=== PATIENT | female | born 1980 | race African-American/Black ===

== ENCOUNTER 2019-01-04 03:49 | Emergency (ER) | payer OTHER ==
[~2019-01-04] VITALS: Ht 175.3 cm; Wt 88.0 kg
[~2019-01-04 03:49] MED LIST: ACET1TAB40 PO; CEPH-443 PO; TRIA15CR55 TOP
[2019-01-04 03:54] VITALS: PULSE 83; RESP 17; Ht 175.3 cm; Wt 88.0 kg
[2019-01-04] MEDS ORDERED: IBUPROFEN 600 MG TAB PO ONE (04:30)
[2019-01-04] MEDS ORDERED: DEXAMETHASONE 4 MG TAB PO ONE (04:30)
[2019-01-04] MEDS ORDERED: DIPHENHYDRAMINE 25 MG CAP PO ONE (04:30)
[2019-01-04] MEDS ORDERED: CEPHALEXIN 500 MG CAP PO ONE (04:30)
[2019-01-04 05:33] VITALS: BP 117/76
== END 2019-01-04 05:33 | disposition home or self-care (01) ==
LOC: FTE 03:49
DX: L30.9 Dermatitis, unspecified (principal)
CPT/HCPCS: Z7502; Z7610; 99283

== ENCOUNTER 2019-01-22 06:05 | Emergency (ER) | payer OTHER ==
[~2019-01-22] VITALS: Ht 175.3 cm; Wt 91.3 kg
[~2019-01-22 06:05] MED LIST changes: +CIPR500T4 PO; +HYDR-3029 PO; +LIDO15CR9 TP; +NAPR-985 PO
[2019-01-22 06:08] VITALS: Ht 175.3 cm; Wt 91.3 kg
[2019-01-22] MEDS ORDERED: IBUPROFEN 800 MG TAB PO ONE (07:30)
[2019-01-22 07:41] VITALS: BP 123/74; PULSE 77; RESP 16
== END 2019-01-22 07:43 | disposition home or self-care (01) ==
LOC: FTE 06:05
DX: N39.0 Urinary tract infection, site not specified (principal)
CPT/HCPCS: 36415; 76830; 76856; 80053; 81001; 81025; 83690; 85025; Z7502; Z7610